=== PATIENT | female | born 1945 | race Two or more races ===

== ENCOUNTER 2017-04-09 11:30 | Inpatient (IN) | payer OTHER ==
[~2017-04-09] VITALS: Ht 152.4 cm; Wt 73.5 kg
[2017-04-09] MEDS ORDERED: IBERSARTAN PO (13:43)
[2017-04-12] MEDS ORDERED: GABAPENTIN800 MG PO (08:31)
[2017-04-12] MEDS ORDERED: DOCUSATE SODIU100 MG PO (08:31)
[2017-04-12] MEDS ORDERED: PERCOCET 5-3251 EACH PO (08:33)
[2017-04-12] MEDS ORDERED: AMOX1TAB12 PO (08:33)
[2017-04-12] MEDS ORDERED: CLONAZEPAM1 MG PO (08:33)
== END 2017-04-12 08:00 | disposition home or self-care (01) | DRG 460 ==
LOC: SURH 04-11 05:00 → O/R 04-11 05:00 → SURH 04-11 09:45 → EDSTATUS 04-11 11:30 → CIR.AMB 04-11 12:30 → O/R 04-12 08:00 → CIR.AMB 04-12 11:00 → O/R 04-12 13:49 → SURG 04-12 13:49 → O/R 04-13 10:47
PROVIDERS: Orthopaedic Surgery Orthopaedic Surgery of the Spine
PROC: 0SG00AJ Fusion of Lumbar Vertebral Joint with Interbody Fusion Device, Posterior Approach, Anterior Column, Open Approach (ICD-10-PCS; 2017-04-11)
PROC: 0ST20ZZ Resection of Lumbar Vertebral Disc, Open Approach (ICD-10-PCS; 2017-04-11)
PROC: 07DS3ZZ Extraction of Vertebral Bone Marrow, Percutaneous Approach (ICD-10-PCS; 2017-04-11)
PROC: 00NY0ZZ Release Lumbar Spinal Cord, Open Approach (ICD-10-PCS; principal; 2017-04-11 09:45)
DX: M43.16 Spondylolisthesis, lumbar region (principal); M48.061 Spinal stenosis, lumbar region without neurogenic claudication; I10 Essential (primary) hypertension; M51.36 Other intervertebral disc degeneration, lumbar region

== ENCOUNTER 2017-09-25 11:03 | Outpatient (CLI) | payer OTHER ==
[~2017-09-25 11:03] MED LIST: AMOX1TAB12 PO; CLONAZEPAM1 MG PO; DOCUSATE SODIU100 MG PO; GABAPENTIN800 MG PO; IBERSARTAN PO; PERCOCET 5-3251 EACH PO
== END 2017-09-25 15:13 | disposition home or self-care (01) ==
LOC: RAD 11:03
DX: M43.10 Spondylolisthesis, site unspecified (principal); Z98.1 Arthrodesis status